=== PATIENT | male | born 1965 | race Caucasian/White ===

== ENCOUNTER 2025-02-17 09:29 | Day surgery (SDC) | payer BC ==
[2025-02-15 09:19] LABS: MEAN PLATELET VOLUME 6.9 FL (7.4-10.4); RED CELL DISTRIBUTION WIDTH 14.4 % (11.5-14.5)
[2025-02-15 10:10] LABS: APTT 24 SECONDS (22-32); INR 1.0 INR
[2025-02-15 10:19] LABS: CREATININE 3.30 MG/DL (0.60-1.10); TOTAL CARBON DIOXIDE 21.2 MMOL/L (24-32); eGFR 19 ML/MIN
[2025-02-15 10:21] LABS: CHOL/HDL RATIO 2.6 (0.00-4.99); LDL CHOLESTEROL 108 MG/DL (50-100)
[2025-02-15 10:38] LABS: BANDS% (MANUAL) 2.0 % (0-10); LYMPHOCYTES % (MANUAL) 8.0 % (21-51); METAMYLEOCYTES% (MANUAL) 1.0 % (0-0); MONOCYTES % (MANUAL) 5.0 % (2-12); NEUTROPHILS % (MANUAL) 84.0 % (42-75)
[2025-02-15 10:39] LABS: PLATELET ESTIMATE NORMAL
[~2025-02-17] VITALS: Ht 188 cm; Wt 104.0 kg
[2025-02-17] VITALS (9 sets, daily range): BP systolic 110–128; BP diastolic 61–77; PULSE 51–65; RESP 16; TEMP 97.9; O2SAT 93–100
--- NOTE | 2025-02-17 10:10 | ELECTROCARDIOGRAPH REPORT ---
[facility] Test Date: 2025-02-17 Test Time: 10:04:40 Pat Name: LULU DAVIS Department: [facility] Patient ID: [facility]-[id number] Room: Gender: M [employer] Helper: BECCA : 1965 Requested By: JENS MCNEAL Order Number: [id number] Reading MD: Dr. DARIN Abdi Measurements Intervals [place] Rate: 58 P: 34 [place]: 171 QRS: 5 QRSD: 99 T: 65 QT: 405 QTc: 398 Interpretive Statements Sinus rhythm Abnormal R-wave progression, early transition Left ventricular hypertrophy Electronically Signed On 02-17-2025 12:58:[address] DARIN Abdi Please click the below link to view image of tracing.
[2025-02-17] MEDS ORDERED: AMLO-708 PO (10:13)
[2025-02-17] MEDS ORDERED: FURO20TA4 PO (10:13)
[2025-02-17] MEDS ORDERED: ALLO100T PO (10:13)
[2025-02-17] MEDS ORDERED: TADA5TAB14 PO (10:13)
[2025-02-17] MEDS ORDERED: OMEG-166 PO (10:16)
[2025-02-17] MEDS ORDERED: TACR5CAP8 PO (10:16)
[2025-02-17] MEDS ORDERED: PRE5T PO (10:16)
[2025-02-17] MEDS ORDERED: ROSU10TA98 PO (10:16)
[2025-02-17] MEDS ORDERED: LOSA100T58 PO (10:17)
[2025-02-17] MEDS ORDERED: MYCO360T3 PO (10:17)
[2025-02-17] MEDS ORDERED: fentaNYL/PF 50MCG/1 ML 2ML syringe ONE (11:54)
[2025-02-17] MEDS ORDERED: LIDOcaine 1% (10mg/ml) 2ml vial ONE (11:54)
[2025-02-17] MEDS ORDERED: midazolam 1 mg/ML 2ml injection ONE (11:54)
[2025-02-17] MEDS ORDERED: heparin 1,000unit/ml 10ml vial 10 ML ONE (11:54)
[2025-02-17] MEDS ORDERED: verapamil 2.5 mg/ml inj IV ONE (11:54)
[2025-02-17] MEDS ORDERED: nitroGLYCERIN 500mcg/5mL D5W 0 ML IV ONE (11:55)
[2025-02-17] MEDS ORDERED: LIDOcaine 1% 30ml preserv. free vial ONE (12:18)
--- NOTE | 2025-02-17 12:52 | CARDIAC CATH REPORT ---
Cardiac Cath Report Providers to CC CC: BARRINGTON MCNEAL MD Procedure Comments: 1. Left Heart Catheterization 2. Selective Coronary Angiography 3. Left Femoral artery access 4. Left femoral artery angiography 5. Closure of femoral artery with Perclose x 1 Brief History/Indications: 59yo man with HTN, HLD, ESRD(s/p renal transplant), now again with CKDIV being evaluate for re-do renal transplant, found to have inferolateral ischemia on stress testing. Techniques: After informed consent was obtained, the patient was brought to the cardiac catheterization laboratory and prepped and draped in usual sterile fashion for left heart catheterization and other procedures mentioned above. The left groin was anesthetized with 1% Lidocaine and the femoral artery accessed via the Seld sarah technique after which a 6Fr sheath was placed. Through this a JL4 was used to engage the left coronary artery, a JR4 to engage the right coronary artery and left ventricle. At the conclusion of the case the sheath was removed and hemostasis obtained with a Perclose device. Findings Findings: HEMODYNAMICS: LV: 121/2 mmHg LVEDP: 18 mmHg Ao: 116/63, MAP 85 mmHg CORONARY ARTERIES: Rt Dominant LMCA: Luminal Irregularities LAD: Luminal Irregularities Dx: Luminal Irregularities LCx: Luminal Irregularities OM1: Luminal Irregularities RCA: Luminal Irregularities PDA: Luminal Irregularities PL: Luminal Irregularities Results Results: 1. No significant obstructive CAD 2. LFA Access, closed with Perclose (left femoral used given transplanted kidney on the right side) RECOMMENDATIONS: 1. No further cardiac evaluation prior to renal transplant JENS MCNEAL MD Feb 17, 2025 12:52
== END 2025-02-17 15:00 | disposition home or self-care (01) ==
LOC: SSTAY O 09:29
PROVIDERS: ATTEND Student in an Organized Health Care Education/Training Program
DX: R94.39 Abnormal result of other cardiovascular function study (principal); R94.31 Abnormal electrocardiogram [ECG] [EKG]; I12.0 Hypertensive chronic kidney disease with stage 5 chronic kidney disease or end stage renal disease; N18.6 End stage renal disease; E78.00 Pure hypercholesterolemia, unspecified; G47.33 Obstructive sleep apnea (adult) (pediatric); M10.9 Gout, unspecified; Z79.899 Other long term (current) drug therapy; Z88.0 Allergy status to penicillin
CPT/HCPCS: 36415; 80048; 80061; 85025; 85610; 85730; 93005; 93458; 99152; C1760; J1644; J2003; J2250; J3010; J7030; Q0163; Q9967; 85007; A6258; J3490